=== PATIENT | female | born 1970 | race Asian ===

== ENCOUNTER → 2020-12-07 | Outpatient (CLI) | payer BC ==
[~2020-12-07] MED LIST: ASCO500C9 PO; CYCL10TA2 PO; DOCU-109 PO; ESCITALOPRAM OX10 MG PO; ESTR-113 PO; HYDR-2761 PO; MULT-246 PO; OMEG1CAP50 PO; OMEP40CA7 PO; VITAMIN D PO; ZINC50TA39 PO
[2020-12-07 13:49] LABS: BASO % 0 % (0-3); EOS # 0.1 x10^3/uL (0.0-0.7); EOS % 2 % (0-3); HEMATOCRIT 38.3 % (36.0-47.0); HEMOGLOBIN 12.9 g/dL (12.0-15.5); LYMPH # 1.8 x10^3/uL (1.0-4.8); LYMPH % 31 % (24-48); MEAN CORPUSCULAR HEMOGLOBIN 29 pg (25-35); MEAN CORPUSCULAR HGB CONC 34 g/dL (31-37); MEAN CORPUSCULAR VOLUME 86 fL (79-100); MONO # 0.4 x10^3/uL (0.0-1.1); MONO % 7 % (0-9); NEUT # 3.5 x10^3/uL (1.8-7.7); NEUT % 60 % (31-73); PLATELET COUNT 259 x10^3/uL (140-400); RED BLOOD COUNT 4.48 x10^6/uL (3.50-5.40); RED CELL DISTRIBUTION WIDTH 13.8 % (11.5-14.5); WHITE BLOOD COUNT 5.8 x10^3/uL (4.0-11.0)
[2020-12-07 14:14] LABS: ALBUMIN 3.5 g/dL (3.4-5.0); ALBUMIN/GLOBULIN RATIO 0.7 (1.0-1.7); CALCIUM 8.6 mg/dL (8.5-10.1); CREATININE 0.9 mg/dL (0.6-1.0); GFR 66.8; POTASSIUM 4.1 mmol/L (3.5-5.1); TOTAL BILIRUBIN 0.2 mg/dL (0.2-1.0); TOTAL PROTEIN 8.3 g/dL (6.4-8.2)
== END ==
LOC: SURGPAT 12:58
PROVIDERS: ATTEND Neurological Surgery
DX: Z01.812 Encounter for preprocedural laboratory examination (principal); M47.12 Other spondylosis with myelopathy, cervical region; M48.02 Spinal stenosis, cervical region
CPT/HCPCS: 36415; 80053; 85025; 87641

== ENCOUNTER 2020-12-09 06:56 | Observation (INO) | payer BC ==
[2020-12-07 13:40] VITALS: BP 142/80
[~2020-12-09] VITALS: Ht 149.9 cm; Wt 72.0 kg
[2020-12-09] VITALS (12 sets, daily range): BP systolic 119–145; BP diastolic 66–84
[~2020-12-09 06:56] MED LIST changes: -DOCU-109 PO; +HYDROmorphone 2 MG/ML VIAL IVP PRN; +MORPHINE SULFATE 2 MG/ML INJ. IVP PRN; +ceFAZolin SODIUM 1 GM in IV NORMAL SALINE 1000ML BAG 1,000 ML IRR ONE; +fentaNYL PF VIAL 100 MCG/2 ML VIAL IVP PRN
[2020-12-09] MEDS ORDERED: THROMBIN TOPICAL 20,000 UNIT SPRAY.SYRN KIT TP ONE (07:24)
[2020-12-09] MEDS ORDERED: GELATIN SPONGE SIZE 100. ONE (07:24)
[2020-12-09] MEDS ORDERED: BUPIVACAINE-EPI 0.5%-1:200000 MPF 30 ML VIAL. ONE (07:24)
[2020-12-09] MEDS: IV RINGERS,LACTATED 1000ML 1,000 ML IV SCH ×2 (07:34→11:43)
[2020-12-09] MEDS ORDERED: MIDAZOLAM HCL/PF 2 MG/2 ML VIAL. ONE (08:04)
[2020-12-09] MEDS ORDERED: fentaNYL PF VIAL 100 MCG/2 ML VIAL ONE ×2 (08:04→11:49)
[2020-12-09] MEDS ORDERED: REMIFENTANIL 2 MG VIAL. IV ONE (08:04)
[2020-12-09] MEDS ORDERED: ONDANSETRON PF 4 MG/2 ML VIAL. ONE (08:05)
[2020-12-09] MEDS ORDERED: PROPOFOL 50 ML IV ONE (08:05)
[2020-12-09] MEDS ORDERED: ROCURONIUM 50 MG/5 ML VIAL. ONE (08:05)
[2020-12-09] MEDS ORDERED: LIDOCAINE 2% PF 5 ML VIAL. ONE (08:05)
[2020-12-09] MEDS ORDERED: DEXAMETHASONE SOD PHOS 4 MG/ML VIAL ONE (08:05)
[2020-12-09] MEDS ORDERED: PROPOFOL 10 MG/ML (20ML) VIAL. IV ONE (08:05)
[2020-12-09] MEDS ORDERED: 0.9 % SODIUM CHLORIDE 20 ML VIAL. IJ ONE ×2 (08:08)
--- NOTE | 2020-12-09 09:06 | PREOP HP ---
DATE OF SERVICE: 12/09/2020 HISTORY OF PRESENT ILLNESS: The patient is a pleasant 50-year-old woman who I saw in 07/2016 for right arm and neck pain. At that time, she had carpal tunnel syndrome and we referred her for treatment of that. Additionally, I referred her for epidural steroid injections and physical therapy for a cervical radiculopathy. She did not have the cervical epidurals. She said the problem waxed and waned over the last couple of years, but over the last month, the pain has markedly increased. She has pain into the posterior neck and right side, which radiates into the right medial scapular region and over her right shoulder, arm, forearm to the middle and index fingers of her right hand. She does not notice weakness. She denies unsteadiness. She was placed on oral steroids and muscle relaxers following a concerning MRI and has improved with regard to her pain. CURRENT MEDICATIONS: Fish oil, zinc, vitamin C, vitamin D, multivitamin, omeprazole, cyclobenzaprine, estradiol, ibuprofen and Tylenol. PAST MEDICAL HISTORY: Asthma, headaches. PAST SURGICAL HISTORY: D and C, cholecystectomy, bilateral carpal tunnel release, hysterectomy. FAMILY HISTORY: Hypertension, headaches. 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 . Does not smoke. Drinks alcohol 1-2 times per week. ALLERGIES: MORPHINE SULFATE. REVIEW OF SYSTEMS: A 12-point review of systems was performed and is noncontributory except that mentioned above. PHYSICAL EXAMINATION: GENERAL: Alert, pleasant, in no acute distress. HEENT: Head normocephalic and atraumatic. NECK: Mild tenderness with palpation of the posterior cervical region. SKIN: Warm and dry. MUSCULOSKELETAL: Cervical paraspinal muscle bulk is normal. Cervical range of motion is restricted. Normal range of motion of the upper extremities bilaterally. EXTREMITIES: No clubbing, cyanosis or edema. NEUROLOGIC: Alert and oriented x3. Strength is 5/5 in the bilateral upper and lower extremities. Sensory is intact to light touch in the upper and lower extremities except for decreased in the right index and middle fingers. Reflexes were increased at the triceps. Knee jerks are very brisk, especially on the right side, the ankle jerk was brisk with 6 beats of clonus, the left ankle jerk is 2+ with 3 beats of clonus. I did not detect any pathologic reflexes, spastic gait favoring her right side. IMAGING: I reviewed her cervical MRI scan from 11/12/2020. The principal abnormalities are at C5-C6. There is a large prominent posterior disc osteophyte complex, which is asymmetric, prominent on the right canal and right lateral recess. There is severe canal and right paracentral and lateral recess stenosis. Just below the disc space, there is an area of myelomalacia associated with the severe spinal canal stenosis. ASSESSMENT AND PLAN: The patient has severe cervical spinal stenosis at C5-C6 along with a right cervical radiculopathy. She has myelopathy with asymmetric reflexes and abnormal gait. My recommendation is that she undergo an anterior cervical discectomy and fusion at C5-C6. I spoke with her about the surgery and the risks. I spoke with her about the soft tissue structures of the neck and sequelae of injury to each. I spoke about the expected postoperative course. She understands. She would like to go ahead. We will make the arrangements. YVON DR: Leobardo TID: [id number] ELIECER
[2020-12-09] MEDS ORDERED: ePHEDrine PF IN SALINE 50 MG/10 ML SYRINGE. IV ONE (10:27)
[2020-12-09] MEDS ORDERED: NEOSTIGMINE METHYLSULFATE 5 MG/5 ML SYRINGE. ONE (11:09)
[2020-12-09] MEDS ORDERED: GLYCOPYRROLATE 1 MG/5 ML VIAL. ONE (11:09)
[2020-12-09] MEDS ORDERED: DESFLURANE > 120 MINUTES IH ONE (11:23)
[2020-12-09] MEDS ORDERED: PROCHLORPERAZINE 10 MG/2 ML VIAL. ONE (11:48)
[2020-12-09] MEDS ORDERED: ACETAMINOPHEN 325 MG TABLET. PO PRN (12:00)
[2020-12-09] MEDS ORDERED: MAG HYDROX/ALUMINUM HYD/SIMETH 30 ML ORAL.SUSP PO PRN (12:00)
[2020-12-09] MEDS ORDERED: HYDROcodone/APAP 5/325MG 1 TAB TABLET PO PRN (12:00)
[2020-12-09] MEDS ORDERED: NALOXONE 0.4 MG/ML VIAL. IV PRN (12:00)
[2020-12-09] MEDS ORDERED: 0.9 % SODIUM CHLORIDE 10 ML DISP.SYRIN. IV PRN (12:00)
[2020-12-09] MEDS ORDERED: fentaNYL PF VIAL 100 MCG/2 ML VIAL IVP PRN (12:00)
[2020-12-09] MEDS ORDERED: diphenhydrAMINE HCL 25 MG CAPSULE PO PRN (12:00)
[2020-12-09] MEDS ORDERED: CALCIUM CARBONATE 500 MG TAB.CHEW PO PRN (12:00)
[2020-12-09] MEDS ORDERED: CYCLOBENZAPRINE 10 MG TABLET. PO PRN (12:00)
[2020-12-09] MEDS ORDERED: MAGNESIUM HYDROXIDE 2,400 MG/30 ML ORAL.SUSP. PO PRN (12:00)
[2020-12-09] MEDS: PROCHLORPERAZINE 10 MG/2 ML VIAL. IVP PRN ×2 (12:01→12:45)
[2020-12-09] MEDS: fentaNYL PF VIAL 100 MCG/2 ML VIAL IVP PRN ×3 (12:02→16:08)
[2020-12-09] MEDS: ASCORBIC ACID 500 MG TABLET PO SCH (13:00)
[2020-12-09] MEDS: ESTRADIOL 1 MG TABLET. PO SCH (13:00)
[2020-12-09] MEDS: CITALOPRAM 20 MG TABLET. PO SCH (13:00)
[2020-12-09] MEDS: ZINC SULFATE 220 MG CAPSULE. PO SCH (13:00)
[2020-12-09] MEDS ORDERED: SCOPOLAMINE 1.5MG PATCH. TD ONE (13:15)
--- NOTE | 2020-12-09 13:15 | NUR ---
received from recovery. she is complaining of feeling nauseated. at bedside. nausea easing after a few minutes of no motion. c/o sore throat. 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 at bedside history completed.
[2020-12-09] MEDS: ceFAZolin SODIUM IV Push 1 GM VIAL. IVP SCH (16:03)
[2020-12-09] MEDS: PANTOPRAZOLE 40 MG TABLET.DR. PO SCH (16:30)
--- NOTE | 2020-12-09 16:30 | NUR ---
Held Protonix due pt being nauseated at this time.
--- NOTE | 2020-12-09 18:24 | NUR ---
Arrived to unit by bed from PACU. Awakens easily. No c/o at this time. Moves all extremities without difficulty. IVF's intact and infusing. O2 at 2l per n/c. DWAYNE's and SCD's on bilaterally. Took sip water easily. Oriented to room and controls. Side rails up x's 2 with call light in reach. Spouse at bedside. Addendum: 12/09/20 at 1841 by DAVID FREEDMAN RN Ignore above note, written on wrong chart.
[2020-12-09] MEDS: POTASSIUM CL 20MEQ D5-0.45NACL 1,000 ML IV SCH (19:22)
[2020-12-09] MEDS: DOCUSATE SODIUM 100 MG CAPSULE. PO SCH (21:00)
[2020-12-10] MEDS: ceFAZolin SODIUM IV Push 1 GM VIAL. IVP SCH ×2 (00:37→08:36)
[2020-12-10] MEDS: POTASSIUM CL 20MEQ D5-0.45NACL 1,000 ML IV SCH (01:20)
[2020-12-10] MEDS: HYDROcodone/APAP 5/325MG 1 TAB TABLET PO PRN ×2 (02:57→08:35)
[2020-12-10 02:59] VITALS: BP 128/80
[2020-12-10 06:18] VITALS: BP 117/70
[2020-12-10] MEDS: ZINC SULFATE 220 MG CAPSULE. PO SCH (08:34)
[2020-12-10] MEDS: ESTRADIOL 1 MG TABLET. PO SCH (08:34)
[2020-12-10] MEDS: PANTOPRAZOLE 40 MG TABLET.DR. PO SCH (08:35)
[2020-12-10] MEDS: DOCUSATE SODIUM 100 MG CAPSULE. PO SCH (08:35)
[2020-12-10] MEDS: ASCORBIC ACID 500 MG TABLET PO SCH (08:35)
[2020-12-10] MEDS: CITALOPRAM 20 MG TABLET. PO SCH (08:35)
[2020-12-10] MEDS ORDERED: MULTIVITAMIN with MINERAL TABLET. PO SCH (09:00)
[2020-12-10] MEDS ORDERED: CHOLECALCIFEROL (VITAMIN D3) 1,000 UNIT TABLET PO SCH (09:00)
[2020-12-10 11:19] VITALS: BP 130/80
[2020-12-10] MEDS ORDERED: DOCU-109 PO (11:29)
--- NOTE | 2020-12-10 11:30 | DISCH ---
DISCHARGE INSTRUCTIONS Condition on Discharge Condition on Discharge: Stable Activity After Discharge Activity Instructions for Disc: Activity as tolerated, Avoid exertion, Prog ressive ambulation Other activity instructions: no driving for a week, soft collar for comfort for a week Bathing Instructions: Shower-keep dressing dry, No Tub Bath until see Lifting Instructions after Dis: No heavy lifting, No pulling or pushing, Do not lift >10 pounds Exercise Instruction after Dis: Exercise per therapy, Progress as tolerated Driving Instructions after Dis: Do not drive Diet after Discharge Diet after Discharge: GI Soft, Regular Liquid Texture: Thin Liquid Wound Incision Care Wound/Incision Care: Ice to area for comfort, May get incision wet Other wound/incision instructi: May shower 48 hours after surgery. Remove dressing. Replace if desired Contacting the after DC Call your doctor for: Concerns you may have Follow-Up Follow Up With: Dr Goodman's nurse in two weeks [phone] Treatment/Equipment after DC Adaptive Equipment Issued: None JANES GOODMAN MD Dec 10, 2020 11:30
--- NOTE | 2020-12-10 11:46 | PDOC ---
PROGRESS NOTES Date of Service DATE: 12/10/20 TIME: 11:42 Subjective Subjective POD #1 S/P ACDF C5-6 right arm pain, numbness tingling resolved neck is sore, sore throat Objective Objective Vital Signs Date Time Temp Pulse Resp B/P (MAP) Pulse Ox O2 Delivery O2 Flow Rate FiO2 12/10/20 11:19 97.8 82 20 130/80 (97) 97 Room Air 97.8 12/09/20 13:57 2.0 Intake and Output 12/10/20 06:59 Intake Total 2652 ml Output Total 610 ml Balance 2042 ml Intake Oral 300 ml IV Total 1350 ml Blood Product IV Normal Saline Flush 1002 ml Output Urine Total 600 ml Estimated Blood Loss 10 ml # Voids 3 Physical Exam General: Alert, Oriented X3, No acute distress, Other (voice clear) Neck: Other (soft collar on) Neuro: Normal speech, Strength at 5/5 X4 ext Skin: Other (dressing C,D,I, flat) Plan Plan of Care dc home f/u 2 weeks Comment Review of Relevant I have reviewed the following items shakir (where applicable) has been applied. Medications Current Medications Cefazolin Sodium 1 gm/Sodium Chloride 1,000 ml @ 1,000 mls/hr 1X ONCE IRR Last administered on 12/09/20at 09:48; Start 12/09/20 at 06:00; Stop 12/09/20 at 06:59; Status DC Fentanyl Citrate (Fentanyl 2ml Vial) 25 mcg PRN Q5MIN PRN IVP MILD PAIN 1-3; Start 12/09/20 at 06:00; Stop 12/09/20 at 20:29; Status DC Fentanyl Citrate (Fentanyl 2ml Vial) 50 mcg PRN Q5MIN PRN IVP MODERATE PAIN 4-6 Last administered on 12/09/20at 16:08; Start 12/09/20 at 06:00; Stop 12/09/20 at 20:29; Status DC Morphine Sulfate (Morphine Sulfate) 1 mg PRN Q10MIN PRN IVP SEVERE PAIN 7-10; Start 12/09/20 at 06:00; Stop 12/10/20 at 05:59; Status DC Ringer's Solution 1,000 ml @ 30 mls/hr Q24H IV Last administered on 12/09/20at 11:43; Start 12/09/20 at 06:00; Stop 12/09/20 at 17:59; Status DC Hydromorphone HCl (Dilaudid) 0.5 mg PRN Q10MIN PRN IVP SEVERE PAIN 7-10, 2nd CHOICE; Start 12/09/20 at 06:00; Stop 12/10/20 at 05:59; Status DC Prochlorperazine Edisylate (Compazine) 5 mg PACU PRN PRN IVP NAUSEA, MRX1 Last administered on 12/09/20at 12:45; Start 12/09/20 at 06:00; Stop 12/10/20 at 05:59; Status DC Cefazolin Sodium/ Dextrose 50 ml @ 100 mls/hr 1X PREOP PRN IV PRIOR TO PROCEDURE; Start 12/09/20 at 06:00; Stop 12/09/20 at 18:00; Status DC Gelatin (Gelfoam Size 100) 1 each STK-MED ONCE .ROUTE Last administered on 12/09/20at 09:48; Start 12/09/20 at 07:24; Stop 12/09/20 at 07:24; Status DC Bupivacaine HCl/ Epinephrine Bitart (Sensorcain-Epi 0.5%-1:[id number] Mpf) 30 ml STK-MED ONCE .ROUTE Last administered on 12/09/20at 09:48; Start 12/09/20 at 07:24; Stop 12/09/20 at 07:24; Status DC Thrombin 20,000 unit STK-MED ONCE TP Last administered on 12/09/20at 09:48; Start 12/09/20 at 07:24; Stop 12/09/20 at 07:25; Status DC Midazolam HCl (Versed) 2 mg STK-MED ONCE .ROUTE ; Start 12/09/20 at 08:04; Stop 12/09/20 at 08:05; Status DC Remifentanil HCl (Ultiva) 2 mg STK-MED ONCE IV ; Start 12/09/20 at 08:04; Stop 12/09/20 at 08:05; Status DC Fentanyl Citrate (Fentanyl 2ml Vial) 100 mcg STK-MED ONCE .ROUTE ; Start 12/09/20 at 08:04; Stop 12/09/20 at 08:05; Status DC Rocuronium Dudley (Zemuron) 50 mg STK-MED ONCE .ROUTE ; Start 12/09/20 at 08:05; Stop 12/09/20 at 08:05; Status DC Propofol (Diprivan) 200 mg STK-MED ONCE IV ; Start 12/09/20 at 08:05; Stop 12/09/20 at 08:05; Status DC Lidocaine HCl (Lidocaine Pf 2% Vial) 5 ml STK-MED ONCE .ROUTE ; Start 12/09/20 at 08:05; Stop 12/09/20 at 08:05; Status DC Ondansetron HCl (Zofran) 4 mg STK-MED ONCE .ROUTE ; Start 12/09/20 at 08:05; Stop 12/09/20 at 08:05; Status DC Dexamethasone Sodium Phosphate (Decadron) 4 mg STK-MED ONCE .ROUTE ; Start 12/09/20 at 08:05; Stop 12/09/20 at 08:05; Status DC Propofol 50 ml @ As Directed STK-MED ONCE IV ; Start 12/09/20 at 08:05; Stop 12/09/20 at 08:05; Status DC Sodium Chloride (SODIUM CHLORIDE 20ml) 20 ml STK-MED ONCE IJ ; Start 12/09/20 at 08:08; Stop 12/09/20 at 08:09; Status DC Sodium Chloride (SODIUM CHLORIDE 20ml) 20 ml STK-MED ONCE IJ ; Start 12/09/20 at 08:08; Stop 12/09/20 at 08:09; Status DC Ephedrine Sulfate (ePHEDrine PF IN SALINE SYRINGE) 50 mg STK-MED ONCE IV ; Start 12/09/20 at 10:27; Stop 12/09/20 at 10:27; Status DC Glycopyrrolate (Robinul) 1 mg STK-MED ONCE .ROUTE ; Start 12/09/20 at 11:09; Stop 12/09/20 at 11:09; Status DC Neostigmine Dudley (Neostigmine Methylsulfate) 5 mg STK-MED ONCE .ROUTE ; Start 12/09/20 at 11:09; Stop 12/09/20 at 11:09; Status DC Desflurane (Suprane) 90 ml STK-MED ONCE IH ; Start 12/09/20 at 11:23; Stop 12/09/20 at 11:24; Status DC Prochlorperazine Edisylate (Compazine) 10 mg STK-MED ONCE .ROUTE ; Start 12/09/20 at 11:48; Stop 12/09/20 at 11:49; Status DC Fentanyl Citrate (Fentanyl 2ml Vial) 100 mcg STK-MED ONCE .ROUTE ; Start 12/09/20 at 11:49; Stop 12/09/20 at 11:49; Status DC Estradiol (Estrace) 1 mg DAILY PO Last administered on 12/10/20 08:34; Start 12/09/20 at 13:00 Ascorbic Acid (Vitamin C) 500 mg DAILY PO Last administered on 12/10/20 08:35; Start 12/09/20 at 13:00 Citalopram Hydrobromide (CeleXA) 20 mg DAILY PO Last administered on 12/10/20 08:35; Start 12/09/20 at 13:00 Multivitamins (Thera M Plus) 1 tab DAILY PO Last administered on 12/10/20 08:35; Start 12/10/20 at 09:00 Pantoprazole Sodium (Protonix) 40 mg DAILYAC PO Last administered on 12/10/20 08:35; Start 12/09/20 at 16:30 Zinc Sulfate (Orazinc) 220 mg DAILY PO Last administered on 12/10/20 08:34; Start 12/09/20 at 13:00 Vitamin D (Vitamin D3) 2,000 unit DAILY PO Last administered on 12/10/20 08:34; Start 12/10/20 at 09:00 Fentanyl Citrate (Fentanyl 2ml Vial) 50 mcg PRN Q2HR PRN IVP PAIN; Start 12/09/20 at 12:00; Stop 12/09/20 at 20:30; Status DC Acetaminophen (Tylenol) 650 mg PRN Q6HRS PRN PO MILD PAIN / TEMP > 100.3'F; Start 12/09/20 at 12:00 Al Hydroxide/Mg Hydroxide (Mylanta Plus Xs) 30 ml PRN Q3HRS PRN PO HEARTBURN / GAS; Start 12/09/20 at 12:00 Calcium Carbonate/ Glycine (Tums) 500 mg PRN Q3HRS PRN PO INDIGESTION; Start 12/09/20 at 12:00 Diphenhydramine HCl (Benadryl) 25 mg PRN Q6HRS PRN PO ITCHING; Start 12/09/20 at 12:00 Naloxone HCl (Narcan) 0.1 mg PRN Q2MIN PRN IV SEE COMMENTS; Start 12/09/20 at 12:00 Sodium Chloride (Normal Saline Flush) 3 ml QSHIFT PRN IV AFTER MEDS AND BLOOD DRAWS; Start 12/09/20 at 12:00 Potassium Chloride/Dextrose/ Sod Cl 1,000 ml @ 75 mls/hr [id number] IV Last admin istered on 12/09/20at 19:22; Start 12/09/20 at 12:00 Acetaminophen/ Hydrocodone Bitart (Lortab 5/325) 1 tab PRN Q4HRS PRN PO MILD PAIN 1-3 Last administered on 12/10/20at 08:35; Start 12/09/20 at 12:00 Acetaminophen/ Hydrocodone Bitart (Lortab 5/325) 2 tab PRN Q4HRS PRN PO MODERATE PAIN, SEVERE PAIN; Start 12/09/20 at 12:00 Docusate Sodium (Colace) 100 mg BID PO Last administered on 12/10/20at 08:35; Start 12/09/20 at 21:00 Magnesium Hydroxide (Milk Of Magnesia) 2,400 mg PRN Q12HR PRN PO CONSTIPATION; Start 12/09/20 at 12:00 Cefazolin Sodium (Ancef) 1 gm Q8H IVP Last administered on 12/10/20at 08:36; Start 12/09/20 at 17:00; Stop 12/10/20 at 09:01; Status DC Cyclobenzaprine HCl (Flexeril) 10 mg PRN Q8HRS PRN PO MUSCLE SPASMS Last administered on 12/09/20at 19:41; Start 12/09/20 at 12:00 Scopolamine (Transderm-Scop) 1 patch 1X ONCE TD Last administered on 12/09/20at 13:40; Start 12/09/20 at 13:15; Stop 12/09/20 at 13:31; Status DC Active Scripts Active Colace (Docusate Sodium) 100 Mg Capsule 100 Mg PO BID Reported Zinc 50 Mg Tablet 1 Tab PO DAILY 30 Days Vitamin C (Ascorbic Acid) 500 Mg Capsule 1 Cap PO DAILY 28 Days Multi-Vitamin Daily (Multivitamin) 1 Each Tablet 1 Tab PO DAILY 30 Days [Vitamin D] 2,000 Mg PO DAILY Fish Oil 1,000 Mg Softgel ([place]-3 Fatty Acids/Fish Oil) 1 Each Capsule 1 Cap PO DAILY 30 Days Estradiol 1 Mg Tablet 1 Tab PO DAILY Omeprazole 40 Mg Capsule. 1 Cap PO DAILY Escitalopram Oxalate 10 Mg Tablet 1 Tab PO DAILY Cyclobenzaprine Hcl 10 Mg Tablet 0.5 Tab PO DAILY Hydrocodone-Apap 5-325 (Hydrocodone Bit/Acetaminophen) 1 Tab Tablet 1 Tab PO PRN Q6HRS PRN Vitals/I & O Vital Sign - Last 24 Hours 12/09/20 12/09/20 12/09/20 12/09/20 11:55 12:02 12:10 12:21 Temp 98.0 98.0 Pulse 97 97 97 Resp 20 20 20 20 B/P (MAP) 141/61 141/61 142/65 Pulse Ox 98 98 98 98 O2 Delivery Room Air Simple Mask Room Air Room Air O2 Flow Rate 10.0 12/09/20 12/09/20 12/09/20 12/09/20 12:36 12:45 12:51 13:15 Temp 98.0 98.0 97.9 98.0 98.0 97.9 Pulse 98 65 101 Resp 20 22 20 18 B/P (MAP) 144/66 145/78 139/79 (99) Pulse Ox 98 95 97 O2 Delivery Room Air Room Air Room Air Room Air 12/09/20 12/09/20 12/09/20 12/09/20 13:30 13:45 13:57 14:00 Pulse 106 98 89 Resp 18 16 18 B/P (MAP) 134/78 (96) 145/84 (104) 140/80 (100) Pulse Ox 97 98 O2 Delivery Room Air Room Air Nasal Cannula Room Air O2 Flow Rate 2.0 12/09/20 12/09/20 12/09/20 12/09/20 14:30 15:00 15:30 16:00 Pulse 99 103 99 103 Resp 20 20 20 20 B/P (MAP) 125/75 (92) 119/73 (88) 125/73 (90) 122/74 (90) Pulse Ox 97 O2 Delivery Room Air Room Air Room Air Room Air 12/09/20 12/09/20 12/09/20 12/09/20 16:08 16:45 17:00 18:00 Temp 97.9 97.9 Pulse 93 96 Resp 20 20 20 20 B/P (MAP) 124/75 (91) 131/84 (100) Pulse Ox 92 96 O2 Delivery Room Air Room Air Room Air Room Air 12/09/20 12/09/20 12/10/20 12/10/20 20:30 23:00 02:57 02:59 Temp 99.2 98.1 99.2 98.1 Pulse 93 90 Resp 16 20 18 B/P (MAP) 124/76 (92) 128/80 (96) Pulse Ox 96 94 O2 Delivery Room Air Room Air Room Air Room Air 12/10/20 12/10/20 12/10/20 12/10/20 03:30 06:18 08:15 08:35 Temp 98.2 98.2 Pulse 71 Resp 20 16 B/P (MAP) 117/70 (86) Pulse Ox 96 96 O2 Delivery Room Air Room Air Room Air Room Air 12/10/20 12/10/20 09:05 11:19 Temp 97.8 97.8 Pulse 82 Resp 20 B/P (MAP) 130/80 (97) Pulse Ox 96 97 O2 Delivery Room Air Room Air Intake and Output 12/09/20 12/09/20 12/10/20 14:59 22:59 06:59 Intake Total 1350 ml 200 ml 1102 ml Output Total 10 ml 600 ml Balance 1340 ml -400 ml 1102 ml Justifications for Admission Other Justification JANES GOODMAN MD Dec 10, 2020 11:46
--- NOTE | 2020-12-10 11:49 | OP ---
DATE OF SURGERY: 12/09/2020 PREOPERATIVE DIAGNOSES: Herniated cervical disc, C5-6 with cervical spinal stenosis and cervical radiculopathy. POSTOPERATIVE DIAGNOSES: Herniated cervical disc, C5-6 with cervical spinal stenosis and cervical radiculopathy. OPERATION PERFORMED: Anterior cervical microdiscectomy, C5-6; anterior cervical interbody fusion, C5-6; anterior cervical plate, C5-6. The operation was done with multimodality monitoring including EMG, SSEP, fluoroscopy, microscopic dissection, NIMS monitoring, motor evoked potentials. SURGEON: Sean Luke M.D. TRANSMISSION LINE ENGINEER: Alanna Bonner APRN, assisted with the surgery. She assisted with the exposure, the microdiscectomy fusion and closure. SPECIMEN: Disc and decompression. OPERATIVE INDICATIONS: The patient is a pleasant 50-year-old who developed intractable back and right arm pain, which failed to improve with time and physical therapy. She has above-mentioned findings on imaging studies and I recommended an anterior cervical microdiscectomy and fusion. I spoke with her about the surgery and the risks. She understood and she wished to go ahead. DESCRIPTION OF PROCEDURE: Following general endotracheal anesthesia, the patient was positioned supine on the operating room table with her head in a neutral position. The anterior cervical region was then prepped and draped in a standard fashion. DWAYNE hose and AV impulse boots were applied for DVT prophylaxis. Microscope was draped, fluoroscopy was draped and brought in the field. Monitoring was established. Ancef 2 grams was given less than 1 hour prior to initiation of the surgery. Using fluoroscopic guidance, incision was made from the midline around in a skin crease centrally and right sided directly over the C5-6 interspace. I dissected down through skin and subcutaneous tissue and dissected around the medial aspect of the sternocleidomastoid and carotid artery sheath after sharply dividing a portion of the platysmas. I reflected the trachea and esophagus contralaterally and placed self-retaining anterior cervical retractors and placed 14 mm pins in C5 and C6. I confirmed my positions fluoroscopically. I brought in the microscope. With the 11 blade, I incised the anterior annulus. I performed discectomy with pituitary rongeurs and scraped cartilaginous endplate. I drilled down the anterior and posterior spurring. I obtained perfect hemostasis. I assured myself that the foramina were widely patent. I placed a 6 mm interbody fusion cage, which was packed with allograft bone after I carefully prepared the endplates. I then placed an anterior plate using the Precision spine anterior plating system and placed two 14 mm screws above and two 12 mm screws below. I locked the construct. I irrigated copiously with antibiotic solution. I valsalvaed the patient. Hemostasis was excellent. I removed the retractors. I closed the wound with absorbable sutures. The skin was closed with 4-0 subcuticular stitch. The surgery went very well. The patient was awakened uneventfully with marked improvement in her right arm pain immediately. I was quite pleased with the surgery. ALEXY DR: Kathleen TID: [id number] ELIECER
--- NOTE | 2020-12-10 12:26 | NUR ---
Patient left around 1210 with her significant other. She refused to have her dressing changed to her anterior neck prior to discharge but four extra dressings were given to the patient incase she wanted to change the dressing at home at all. Surgical dressing CDI. Soft collar in place. IV discontinued without complications. Discharge education gone over by this nurse, therapy, and the doctor prior to dismissal. No concerns noted at discharge.
--- NOTE | 2020-12-13 18:06 | PATHOLOGY ---
[facility] Accession Number: [id number] . 01 Material submitted: . vertebral column - CERVICAL DISC . 01 Clinical history: . CERVICAL STENOSIS, SPONDYLOSIS, CERVICAL MYELOPATHY ACDF C5-6 . 02 Diagnosis: Segments of fibrocartilaginous and skeletal muscle tissue and bone, cervical disc: - Degenerative changes of fibrocartilaginous tissue. (JPM:pit; 12/13/2020) [facility] 12/13/2020 1349 Local . 02 Comment: There is no evidence of an acute inflammatory process or malignancy. (JPM:pit; 12/13/2020) . 02 Electronically signed: . Igor Galindo MD, Pathologist NPI- [id number] . 01 Gross description: . The specimen is received in formalin, labeled "Jalyn Tanner, cervical disc". Received are multiple segments of pale cardenas fibrous tissue admixed with gritty fragments of bone measuring 3.0 x 1.9 x 0.4 cm in aggregate dimensions. The specimen is filtered and entirely submitted in cassette A1, following light decalcification. (CAA; 12/10/2020) QAC/QAC 12/10/2020 1441 Local . 02 Pathologist provided ICD-10: M50.322 . 02 CPT . 285981, [id number] Specimen Comment: A courtesy copy of this report has been sent to [phone], [phone] Specimen Comment: [id number] Specimen Comment: Report sent to / DR ROY Performed at: [address], [place], [place] [id number] MD Nelson Bartlett MD Phone: [phone] Performed at: 02 [facility] [address] [place], [place] [id number] MD Igor Galindo MD Phone: [phone]
== END 2020-12-10 12:15 | disposition home or self-care (01) ==
LOC: SURG 06:56 → EDUNIT# 08:30 → 4 SOUTHEST 12:11
PROVIDERS: ADMIT Neurological Surgery; ATTEND Neurological Surgery
DX: M48.02 Spinal stenosis, cervical region (principal); M50.122 Cervical disc disorder at C5-C6 level with radiculopathy; J45.909 Unspecified asthma, uncomplicated; R51.9 Headache, unspecified; Z90.49 Acquired absence of other specified parts of digestive tract; Z90.710 Acquired absence of both cervix and uterus; Z98.1 Arthrodesis status
CPT/HCPCS: 20931; 22551; 22853; 88304; 88311; 96361; 96374; 96375; 96376; 97116; 97162; 97530; A4213; A4364; A4556; A4930; A6254; A6258; C1713; C1821; G0378; G0379; J0690; J0780; J1100; J2250; J2405; J2704; J2710; J3010; J3480; J3490; J7030; 76000; A4222; A4223